=== PATIENT | female | born 1955 | race African-American/Black ===

== ENCOUNTER → 2018-04-21 | Outpatient (CLI) | payer BC ==
[2015-10-23 08:45] VITALS: BP 128/79
[~2018-04-21] MED LIST: CARI350T PO; NAPR-514 PO; OLME1TAB23 PO
--- NOTE | 2018-04-21 17:42 | RAD ---
INDICATION: Left upper extremity swelling. Bariatric surgery on April 03. TECHNIQUE: Grayscale, color-flow, and spectral waveform analysis was performed. No comparison is available. FINDINGS: All visualized vein segments are compressible with normal phasicity of waveform and augmentation. No thrombus on grayscale or color imaging is apparent. IMPRESSION: No evidence of deep vein thrombosis in the left upper extremity. Electronically signed by: Isaiah Marmolejo MD (04/21/2018 5:39 PM) [facility]
== END | disposition home or self-care (01) ==
LOC: US 16:12
PROVIDERS: ATTEND Physician Assistant
DX: M79.602 Pain in left arm (principal); M79.89 Other specified soft tissue disorders
CPT/HCPCS: 93971

== ENCOUNTER → 2018-05-04 | Outpatient (CLI) | payer BC ==
[2015-10-23 08:45] VITALS: BP 128/79
--- NOTE | 2018-05-04 16:34 | RAD ---
Right upper extremity venous ultrasound, 05/04/2018: HISTORY: Intermittent forearm pain Duplex evaluation of the major veins of the right upper extremity was performed including grayscale, color-flow and spectral Doppler analysis. The right internal jugular, subclavian, axillary and paired brachial veins are all patent. Patent cephalic and basilic veins are present in the upper arm. Patent radial and ulnar veins are evident in the forearm. IMPRESSION: No evidence of deep vein thrombosis in the right upper extremity. Electronically signed by: Paramjit Fernandez MD (05/04/2018 4:31 PM) [facility]
== END | disposition home or self-care (01) ==
LOC: US 13:04
PROVIDERS: ATTEND Nurse Practitioner Family
DX: M79.631 Pain in right forearm (principal)
CPT/HCPCS: 93971